=== PATIENT | female | born 1975 | race Caucasian/White ===

== ENCOUNTER 2019-06-22 22:47 | Emergency (ER) | payer BC, MEDICAID ==
[2019-06-23] MEDS: LORAZEPAM 2 MG INJ IV (00:35)
== END 2019-06-23 03:09 | disposition home or self-care (01) ==
LOC: E/R 06-23 03:09
DX: F41.9 Anxiety disorder, unspecified (principal); Z86.73 Personal history of transient ischemic attack (TIA), and cerebral infarction without residual deficits
CPT/HCPCS: 70450; 96374; 99285-25